=== PATIENT | male | born 1960 | race Caucasian/White ===

== ENCOUNTER 2016-08-26 06:57 | Emergency (ER) | payer MEDICAID, OTHER ==
[~2016-08-26] VITALS: Ht 185.4 cm; Wt 119.0 kg
[2016-08-26 07:02] VITALS: BP 136/95; PULSE 104; RESP 16; TEMP 98.2; O2SAT 98
[2016-08-26] MEDS ORDERED: KETOROLAC TROMETHAMINE 30 MG/ML (IVP) VIAL IV PUSH ONE (07:30)
[2016-08-26] MEDS ORDERED: ONDANSETRON HCL 4 MG/2 ML VIAL IV PUSH ONE (07:30)
[2016-08-26] MEDS ORDERED: HYDROmorphone HCL PF 1 MG/ML VIAL IV PUSH ONE ×3 (07:30→09:45)
[2016-08-26] MEDS ORDERED: SODIUM CHLOR 0.9% 1000 ML INJ 1,000 ML IV ONE (07:30)
--- NOTE | 2016-08-26 07:42 | PD ---
HPI Chief Complaint: Flank/Kidney Pain Time Seen by Provider: 07:11 Travel History International Travel<30 days: No Contact w/Intl Traveler<30days: No Traveled to known affect area: No History of Present Illness HPI This is a 56-year-old male who presents to the emergency department with left- sided flank pain that started at 2 AM, described as throbbing, constant, radiating into the left lower abdomen, moderate severity associated with nausea. He says this feels similar to kidney stones he's had in the past. Patient reports he's had kidney stones multiple times. He's never required stenting or other intervention and they always passed on their own. He denies any fevers or chills and denies any hematuria. PFSH Past Medical History Narrative Medical diabetes melanoma Diabetes: Yes Social History Tobacco Use: No Allergies-Medications (Allergen,Severity, Reaction): Coded Allergies: No Known Allergies (Unverified , 08/26/16) Reported Meds & Prescriptions Reported Meds & Active Scripts Active Reported Lisinopril 5 Mg Tab Unknown Dose PO DAILY [unknown statin] 1 Tab PO DAILY Metformin (Metformin HCl) 500 Mg Tab 500 Mg PO DAILY With a meal Review of Systems Except as stated in HPI: all other systems reviewed are Neg Physical Exam Narrative GENERAL: Uncomfortable appearing, actively vomiting SKIN: Warm and dry. HEAD: Atraumatic. Normocephalic. EYES: Pupils equal and round. No injection or drainage. ENT: Moist mucous membranes NECK: Trachea midline. CARDIOVASCULAR: Regular rate and rhythm. No murmur appreciated. RESPIRATORY: Clear to auscultation. Breath sounds equal bilaterally. GASTROINTESTINAL: Abdomen soft, mildly tender to palpation in the left lower quadrant with no rebound or guarding. : Left CVA tenderness. MUSCULOSKELETAL: No obvious deformities. NEUROLOGICAL: Awake and alert. No obvious cranial nerve deficits. Moving all extremities. PSYCHIATRIC: Appropriate mood and affect; insight and judgment normal. Data Data Last Documented VS Vital Signs Date Time Temp Pulse Resp B/P Pulse Ox O2 Delivery O2 Flow Rate FiO2 08/26/16 10:21 16 08/26/16 10:10 75 131/72 95 08/26/16 07:02 98.2 Orders Complete Blood Count With Diff (08/26/16 07:17) Comprehensive Metabolic Panel (08/26/16 07:17) ^ Insert Iv (08/26/16 07:17) Urinalysis - C+S If Indicated (08/26/16 07:17) Ketorolac Inj (Toradol Inj) (08/26/16 07:30) Hydromorphone Pf Inj (Dilaudid Pf Inj) (08/26/16 07:30) Sodium Chlor 0.9% 1000 Ml Inj (Ns 1000 M (08/26/16 07:30) Ondansetron Inj (Zofran Inj) (08/26/16 07:30) Hydromorphone Pf Inj (Dilaudid Pf Inj) (08/26/16 09:00) Ct Abd/Pel W/O Iv Contrast (08/26/16 ) Hydromorphone Pf Inj (Dilaudid Pf Inj) (08/26/16 09:45) Labs Laboratory Tests Test 08/26/16 08/26/16 07:45 08:30 White Blood Count 11.5 TH/MM3 Red Blood Count 5.69 MIL/MM3 Hemoglobin 16.1 GM/DL Hematocrit 49.8 % Mean Corpuscular Volume 87.5 FL Mean Corpuscular Hemoglobin 28.4 PG Mean Corpuscular Hemoglobin 32.4 % Concent Red Cell Distribution Width 13.1 % Platelet Count 229 TH/MM3 Mean Platelet Volume 8.7 FL Neutrophils (%) (Auto) 75.8 % Lymphocytes (%) (Auto) 17.5 % Monocytes (%) (Auto) 4.9 % Eosinophils (%) (Auto) 0.4 % Basophils (%) (Auto) 1.4 % Neutrophils # (Auto) 8.7 TH/MM3 Lymphocytes # (Auto) 2.0 TH/MM3 Monocytes # (Auto) 0.6 TH/MM3 Eosinophils # (Auto) 0.0 TH/MM3 Basophils # (Auto) 0.2 TH/MM3 CBC Comment DIFF FINAL Differential Comment Sodium Level 140 MEQ/L Potassium Level 4.3 MEQ/L Chloride Level 103 MEQ/L Carbon Dioxide Level 27.8 MEQ/L Anion Gap 9 MEQ/L Blood Urea Nitrogen 16 MG/DL Creatinine 1.00 MG/DL Estimat Glomerular Filtration 78 ML/MIN Rate Random Glucose 288 MG/DL Calcium Level 9.4 MG/DL Total Bilirubin 0.5 MG/DL Aspartate Amino Transf 17 U/L (AST/SGOT) Alanine Aminotransferase 44 U/L (ALT/SGPT) Alkaline Phosphatase 70 U/L Total Protein 7.7 GM/DL Albumin 4.3 GM/DL Urine Collection Type CLEAN CATCH Urine Color BROWN Urine Turbidity CLOUDY Urine pH 5.5 Urine Specific [place] 1.028 Urine Protein 100 mg/dL Urine Glucose (UA) 500 mg/dL Urine Ketones NEG mg/dL Urine Occult Blood LARGE Urine Nitrite NEG Urine Bilirubin NEG Urine Leukocyte Esterase NEG Urine RBC INNUM /hpf Urine WBC 0-2 /hpf Microscopic Urinalysis Comment CULT NOT INDICATED MDM Medical Decision Making Medical Screen Exam Complete: Yes Emergency Medical Condition: Yes Interpretation(s) Afebrile, tachycardic, mild hypertension Mild leukocytosis 75% neutrophils Hyperglycemia Urinalysis: Blood in the urine CT abdomen and pelvis: 3 mm kidney stone in the left mid ureter with some abnormal mesentery which was discussed with the patient and the patient was provided a printout of his CT results. Differential Diagnosis Nephrolithiasis, pyelonephritis, infected stone Narrative Course This is a 56-year-old male who has a history of kidney stones who presents to the emergency department with signs and symptoms classic for kidney stone. He is nontoxic appearing and afebrile. He was placed on a monitor and an IV was established. He was given 3 mg of IV Dilaudid, Toradol and Zofran as well as IV hydration. After the third dose of became concerned because his symptoms were not improving. We did obtain a CT which demonstrated a 3 mm stone in the mid ureter. Patient feels well enough to be discharged. He will follow up with urology as needed. Diagnosis Primary Impression: Nephrolithiasis Patient Instructions: General Instructions Additional Instructions: If you develop severe pain, inability to eat or drink, or fever return to the emergency department. Use a strainer to try to catch your stone. Take percocet as needed for pain, and continue taking zofran as needed for nausea. Follow up with urology as soon as possible. You have some abnormal mesentery on CT which should be discussed with your primary care physician. Med/Other Pt SpecificInfo: Prescription(s) given Scripts Ondansetron Odt (Zofran Odt)4 Mg Tab4 Mg SL Q6HR PRN (Nausea/Vomiting) #15 TAB Ref 0 Prov:Lola Mancera MD 08/26/16 Hydrocodone-Acetaminophen (Lortab)10-325 Mg Tab1 Tab PO Q6H PRN (PAIN) #15 TAB Ref 0 Prov:Lola Mancera MD 08/26/16 Disposition: 01 DISCHARGE HOME Condition: Stable Lola Mancera MD Aug 26, 2016 07:42
[2016-08-26 08:02] LABS: CHLORIDE 103 MEQ/L (98-107); POTASSIUM 4.3 MEQ/L (3.5-5.1); SODIUM (NA) 140 MEQ/L (136-145)
[2016-08-26 08:05] LABS: ANION GAP 9 MEQ/L (5-15); BICARBONATE 27.8 MEQ/L (21.0-32.0); BLOOD UREA NITROGEN 16 MG/DL (7-18)
[2016-08-26] MEDS ORDERED: METF500T PO (08:07)
[2016-08-26] MEDS ORDERED: LISI-519 PO (08:07)
[2016-08-26] MEDS ORDERED: [UNRECOGNIZED DRUG - REMARK] PO (08:07)
[2016-08-26 08:08] LABS: ALT (GPT) 44 U/L (12-78); AST (GOT) 17 U/L (15-37); GLOMERULAR FILTRATION RATE 78 ML/MIN (>89)
[2016-08-26 08:10] LABS: TOTAL BILIRUBIN ADULT 0.5 MG/DL (0.2-1.0)
[2016-08-26 08:11] LABS: ALKALINE PHOSPHATASE 70 U/L (45-117)
[2016-08-26 08:12] LABS: AUTOMATED NEUTROPHIL # 8.7 TH/MM3 (1.8-7.7); BASOPHIL # 0.2 TH/MM3 (0-0.2); BASOPHIL % 1.4 % (0.0-2.0); EOSINOPHIL % 0.4 % (0.0-4.0); HEMATOCRIT 49.8 % (39.0-51.0); LYMPH % 17.5 % (9.0-44.0); MEAN CELL VOLUME 87.5 FL (80.0-100.0); MEAN CORPUSCULAR HEMOGLOBIN 28.4 PG (27.0-34.0); MEAN CORPUSCULAR HGB CONC 32.4 % (32.0-36.0); MONO % 4.9 % (0.0-8.0); NEUT % 75.8 % (16.0-70.0); PLATELET COUNT 229 TH/MM3 (150-450); RED BLOOD COUNT 5.69 MIL/MM3 (4.50-5.90); RED CELL DISTRIBUTION WIDTH 13.1 % (11.6-17.2); WHITE BLOOD COUNT 11.5 TH/MM3 (4.0-11.0)
[2016-08-26 08:13] LABS: HEMO FLAGS DIFF FINAL
[2016-08-26 08:45] LABS: BLOOD, URINE LARGE (NEG); GLUCOSE,URINE 500 mg/dL (NEG); KETONE, URINE NEG (NEG); NITRITE,URINE NEG (NEG); PH, URINE 5.5 (5.0-8.5)
[2016-08-26 08:48] LABS: METHOD OF COLLECTION CLEAN CATCH; URINE COLOR BROWN (YELLW/STRAW)
[2016-08-26 08:50] LABS: COMMENT (UR) CULT NOT INDICATED; CULTURE IF INDICATED CULT NOT INDICATED; RBC, URINE INNUM /hpf (0-3); WBC, URINE 0-2 /hpf (0-5)
[2016-08-26 10:10] VITALS: BP 131/72; PULSE 75; RESP 16; O2SAT 95
--- NOTE | 2016-08-26 10:45 | RADHPO ---
EXAM DATE/TIME: 08/26/2016 10:10 [facility] COMPARISON: No previous studies available for comparison. INDICATIONS : Lower left flank pain. ORAL CONTRAST: Prescribed oral contrast ingested. RADIATION DOSE: 24.72 CTDIvol (mGy) MEDICAL HISTORY : Diabetes mellitus type 2. SURGICAL HISTORY : None. ENCOUNTER: Initial ACUITY: 1 day PAIN SCALE: 4/10 LOCATION: Left flank TECHNIQUE: Volumetric scanning of the abdomen and pelvis was performed. Using automated exposure control and adjustment of the mA and/or kV according to patient size, radiation dose was kept as low as reasonably achievable to obtain optimal diagnostic quality images. FINDINGS: The lung bases are clear. Liver, spleen and pancreas are unremarkable. The right adrenal gland is n ormal. There is a small low-density nodule measuring 1 cm on the left adrenal gland. The right kidney is unremarkable. There is mild perinephric stranding about the left kidney with mil d prominence to the collecting system. There is a 3 mm stone in the middle third of the left ureter. Pelvic contents are unremarkable. There is evidence of previous surgery of the anterior abdominal wall. There is minimal edema in the root of the mesentery. This is nonspecific but does deserve some follo wup. This can be seen in lymphoproliferative disorders. This is associated with very minimal adenop athy. CONCLUSION: 1. 3 mm obstructing stone on the left in the middle third of the left ureter. 2. Abnormal mesentery as described above. Doug Massey MD FACR on August 26, 2016 at 10:31 Board Certified Radiologist. This report was verified electronically.
[2016-08-26] MEDS ORDERED: ZOFR4TAB3 SL (10:54)
[2016-08-26] MEDS ORDERED: HYDR-3535 PO (10:54)
[2016-08-26 11:10] VITALS: BP 136/72; PULSE 79; RESP 16; O2SAT 96
[2016-08-26 11:13] VITALS: BP 136/72
== END 2016-08-26 11:16 | disposition home or self-care (01) ==
LOC: PHED 06:57
DX: N20.0 Calculus of kidney (principal); D72.829 Elevated white blood cell count, unspecified; E11.9 Type 2 diabetes mellitus without complications; Z85.820 Personal history of malignant melanoma of skin; Z79.899 Other long term (current) drug therapy
CPT/HCPCS: 74176; 80053; 81001; 85025; 96361; 96374; 96375; 96376; 99284; J1170; J1885; J2405; J7030

== ENCOUNTER 2017-07-02 04:43 | Emergency (ER) | payer MEDICAID ==
[~2017-07-02] VITALS: Ht 185.4 cm; Wt 114.8 kg
[~2017-07-02 04:43] MED LIST: HYDR-3535 PO; LISI-519 PO; METF500T PO; ZOFR4TAB3 SL; [UNRECOGNIZED DRUG - REMARK] PO
[2017-07-02 04:47] VITALS: BP 177/113; PULSE 95; RESP 20; TEMP 97.9; O2SAT 96
[2017-07-02] MEDS ORDERED: FLUO10TA PO (04:58)
[2017-07-02] MEDS ORDERED: SODIUM CHLOR 0.9% 1000 ML INJ 1,000 ML IV ONE (05:02)
--- NOTE | 2017-07-02 05:02 | PD ---
HPI Chief Complaint: Flank/Kidney Pain Time Seen by Provider: 04:55 Travel History International Travel<30 days: No Contact w/Intl Traveler<30days: No Traveled to known affect area: No History of Present Illness HPI The patient is a 57-year-old male who has a long history of kidney stones who complains of hematuria yesterday and at 3:00 this morning right flank pain. The pain is not near the UVJ but is high up near the right kidney. He does have nausea with vomiting. He denies any fever. His pain is sharp and a 10 over 10. PFSH Past Medical History High Cholesterol: Yes Diabetes: Yes (metformin) Hypertension: Yes Past Surgical History Other Surgery: Yes (hernia repair bilateral inguinal areas) Social History Alcohol Use: Yes (rare) Tobacco Use: No Substance Use: No Allergies-Medications (Allergen,Severity, Reaction): Coded Allergies: No Known Allergies (Verified Adverse Reaction, Unknown, 07/02/17) Reported Meds & Prescriptions Reported Meds & Active Scripts Active Reported Fluoxetine (Fluoxetine HCl) 10 Mg Tab 10 Mg PO DAILY Lisinopril 5 Mg Tab Unknown Dose PO DAILY Metformin (Metformin HCl) 500 Mg Tab 500 Mg PO DAILY With a meal Review of Systems Except as stated in HPI: all other systems reviewed are Neg Physical Exam Narrative GENERAL: The patient is alert, oriented 3 in severe distress with his right flank pain. His vital signs show blood pressure 177/113 but are otherwise normal. SKIN: Focused skin assessment warm/dry. HEAD: Atraumatic. Normocephalic. EYES: Pupils equal and round. No scleral icterus. No injection or drainage. ENT: No nasal bleeding or discharge. Mucous membranes pink and moist. NECK: Trachea midline. No JVD. CARDIOVASCULAR: Regular rate and rhythm. No murmur appreciated. RESPIRATORY: No accessory muscle use. Clear to auscultation. Breath sounds equal bilaterally. GASTROINTESTINAL: Abdomen soft, with minimal tenderness to direct palpation in the right flank, nondistended. Hepatic and splenic margins not palpable. No guarding or rebound is present. MUSCULOSKELETAL: No obvious deformities. No clubbing. No cyanosis. No edema. NEUROLOGICAL: Awake and alert. No obvious cranial nerve deficits. Motor grossly within normal limits. Normal speech. PSYCHIATRIC: Appropriate mood and affect; insight and judgment normal. Data Data Last Documented VS Vital Signs Date Time Temp Pulse Resp B/P (MAP) Pulse Ox O2 Delivery O2 Flow Rate FiO2 07/02/17 06:02 74 18 126/78 (94) 97 Room Air 07/02/17 04:47 97.9 Orders Orders Complete Blood Count With Diff (07/02/17 05:02) Basic Metabolic Panel (Bmp) (07/02/17 05:02) Urinalysis - C+S If Indicated (07/02/17 05:02) Ct Abd/Pel W/O Iv Contrast (07/02/17 05:02) Ecg Monitoring (07/02/17 05:02) Iv Access Insert/Monitor (07/02/17 05:02) Hydromorphone Pf Inj (Dilaudid Pf Inj) (07/02/17 05:15) Ondansetron Inj (Zofran Inj) (07/02/17 05:15) Sodium Chloride 0.9% Flush (Ns Flush) (07/02/17 05:15) Sodium Chlor 0.9% 1000 Ml Inj (Ns 1000 M (07/02/17 05:02) Labs Laboratory Tests Test 07/02/17 05:12 White Blood Count 6.8 TH/MM3 Red Blood Count 5.14 MIL/MM3 Hemoglobin 14.9 GM/DL Hematocrit 44.9 % Mean Corpuscular Volume 87.4 FL Mean Corpuscular Hemoglobin 29.1 PG Mean Corpuscular Hemoglobin Concent 33.3 % Red Cell Distribution Width 12.8 % Platelet Count 208 TH/MM3 Mean Platelet Volume 7.7 FL Neutrophils (%) (Auto) 65.2 % Lymphocytes (%) (Auto) 27.2 % Monocytes (%) (Auto) 6.6 % Eosinophils (%) (Auto) 0.5 % Basophils (%) (Auto) 0.5 % Neutrophils # (Auto) 4.6 TH/MM3 Lymphocytes # (Auto) 1.8 TH/MM3 Monocytes # (Auto) 0.4 TH/MM3 Eosinophils # (Auto) 0.0 TH/MM3 Basophils # (Auto) 0.0 TH/MM3 CBC Comment DIFF FINAL Differential Comment Blood Urea Nitrogen 17 MG/DL Creatinine 1.00 MG/DL Random Glucose 252 MG/DL Calcium Level 8.6 MG/DL Sodium Level 140 MEQ/L Potassium Level 3.3 MEQ/L Chloride Level 107 MEQ/L Carbon Dioxide Level 26.0 MEQ/L Anion Gap 7 MEQ/L Estimat Glomerular Filtration Rate 77 ML/MIN MDM Medical Decision Making Medical Screen Exam Complete: Yes Emergency Medical Condition: Yes Medical Record Reviewed: Yes Interpretation(s) The basic metabolic profile shows a GFR 77, glucose 252, potassium 3.3 but is otherwise unremarkable. The CT abdomen pelvis shows a 4.3 mm stone in the proximal right ureter located near the UPJ causing mild right hydronephrosis. Incidentally noted is a 2 mm nonobstructing left renal stone. The CBC is normal. Differential Diagnosis Right urinary stone, urinary tract infection, drug seeking behavior-highly unlikely, dissecting aortic aneurysm-extremely unlikely Narrative Course It is now 0618 and the patient has no pain. He is told that his stone as a long way to go before he passes it but he will be given Percocet 7.5, Motrin 800 mg 3 times daily and prochlorperazine. He needs to increase his liquid intake and follow-up with a urologist. Diagnosis Primary Impression: Right ureteral calculus Additional Instructions: As we discussed, follow-up with urologist. Increase liquid intake to establish a good flow through your kidneys. Do not drink alcohol or drive on the Percocet 7.5. Take the Motrin regularly. Med/Other Pt SpecificInfo: Prescription(s) given Scripts Prochlorperazine Maleate (Prochlorperazine Maleate) 10 Mg Tab 10 MG PO Q6H Y for NAUSEA OR VOMITING, #30 TAB 0 Refills Prov: Jesus Earl MD 07/02/17 Oxycodone-Acetaminophen (Percocet) 7.5-325 mg Tab 1 TAB PO Q4H Y for PAIN, #30 TAB 0 Refills Prov: Jesus Earl MD 07/02/17 Ibuprofen (Ibuprofen) 800 Mg Tab 800 MG PO TID, #44 TAB 0 Refills Prov: Jesus Earl MD 07/02/17 Disposition: 01 DISCHARGE HOME Condition: Stable Jesus Earl MD Jul 02, 2017 05:02
[2017-07-02] MEDS ORDERED: HYDROmorphone HCL PF 2 MG/ML VIAL IVS ONE (05:15)
[2017-07-02] MEDS ORDERED: SODIUM CHLORIDE 0.9% FLUSH 10 ML FLUSH IVF PRN (05:15)
[2017-07-02] MEDS ORDERED: ONDANSETRON HCL 4 MG/2 ML VIAL IV PUSH ONE (05:15)
[2017-07-02 05:27] VITALS: BP 142/88; PULSE 73; RESP 18; O2SAT 96
[2017-07-02 05:43] LABS: AUTOMATED NEUTROPHIL # 4.6 TH/MM3 (1.8-7.7); BASOPHIL % 0.5 % (0.0-2.0); EOSINOPHIL % 0.5 % (0.0-4.0); HEMATOCRIT 44.9 % (39.0-51.0); HEMOGLOBIN 14.9 GM/DL (13.0-17.0); LYMPH % 27.2 % (9.0-44.0); LYMPHOCYTE # 1.8 TH/MM3 (1.0-4.8); MEAN CELL VOLUME 87.4 FL (80.0-100.0); MEAN CORPUSCULAR HEMOGLOBIN 29.1 PG (27.0-34.0); MEAN CORPUSCULAR HGB CONC 33.3 % (32.0-36.0); MEAN PLATELET VOLUME 7.7 FL (7.0-11.0); MONO % 6.6 % (0.0-8.0); MONOCYTE # 0.4 TH/MM3 (0-0.9); NEUT % 65.2 % (16.0-70.0); PLATELET COUNT 208 TH/MM3 (150-450); RED BLOOD COUNT 5.14 MIL/MM3 (4.50-5.90); RED CELL DISTRIBUTION WIDTH 12.8 % (11.6-17.2); WHITE BLOOD COUNT 6.8 TH/MM3 (4.0-11.0)
[2017-07-02 06:02] VITALS: BP 126/78; PULSE 74; RESP 18; O2SAT 97
--- NOTE | 2017-07-02 06:07 | RADRPT ---
EXAM DATE/TIME: 07/02/2017 05:45 [facility] COMPARISON: CT ABDOMEN & PELVIS W/O CONTRAST, August 26, 2016, 10:10. INDICATIONS : Right flank pain. Gross hematuria. ORAL CONTRAST: No oral contrast ingested. RADIATION DOSE: 20.98 CTDIvol (mGy) MEDICAL HISTORY : Hypertension. Diabetes mellitus type 2. SURGICAL HISTORY : None. ENCOUNTER: Initial ACUITY: 1 day PAIN SCALE: 10/10 LOCATION: Right flank TECHNIQUE: Volumetric scanning of the abdomen and pelvis was performed. Using automated exposure control and ad justment of the mA and/or kV according to patient size, radiation dose was kept as low as reasonably achievable to obtain optimal diagnostic quality images. DICOM format image data is available electro nically for review and comparison. FINDINGS: LOWER LUNGS: The visualized lower lungs are clear. LIVER: Homogeneous density without lesion. There is no dilation of the biliary tree. No calcified gallston es. SPLEEN: Normal size without lesion. PANCREAS: Within normal limits. KIDNEYS: Normal in size and shape. There is mild right hydronephrosis caused by a 4 x 3 mm stone in the right proximal ureter at the ureteropelvic junction. There is a 2 mm nonobstructing left renal stone. ADRENAL GLANDS: There is a stable nodule on the left adrenal gland measuring 13 mm with Hounsfield measurements consi stent with an adenoma. Adrenal glands otherwise have a stable appearance. VASCULAR: There is no aortic aneurysm. There is mild atherosclerotic disease. BOWEL/MESENTERY: The stomach, small bowel, and colon demonstrate no acute abnormality. There is no free intraperitone al air or fluid. There is groundglass attenuation in the small bowel mesentery. Sigmoid diverticulosi s is present. ABDOMINAL WALL: Within normal limits. RETROPERITONEUM: There is no lymphadenopathy. BLADDER: No wall thickening or mass. REPRODUCTIVE: Within normal limits. INGUINAL: There is no lymphadenopathy or hernia. There are clips related to prior hernia repair. MUSCULOSKELETAL: There are degenerative changes of the lumbar spine. CONCLUSION: 1. There is a 4 x 3 mm stone in the right proximal ureter located near the ureteropelvic junction corrina t is causing mild right hydronephrosis. 2. There is a 2 mm nonobstructing left renal stone. Efrain Hi MD on July 02, 2017 at 6:00 Board Certified Radiologist. This report was verified electronically.
[2017-07-02 06:10] LABS: CALCIUM 8.6 MG/DL (8.5-10.1)
[2017-07-02] MEDS ORDERED: PERC7.5T13 PO (06:22)
[2017-07-02] MEDS ORDERED: IBUP1TAB7 PO (06:22)
[2017-07-02] MEDS ORDERED: PROC10TA PO (06:22)
== END 2017-07-02 06:38 | disposition home or self-care (01) ==
LOC: PHED 04:43
DX: N13.2 Hydronephrosis with renal and ureteral calculous obstruction (principal); I10 Essential (primary) hypertension; E11.9 Type 2 diabetes mellitus without complications; E78.00 Pure hypercholesterolemia, unspecified; Z79.84 Long term (current) use of oral hypoglycemic drugs
CPT/HCPCS: 74176; 80048; 85025; 96361; 96374; 96375; 99284; J1170; J2405; J7030